=== PATIENT | male | born 2005 | race African-American/Black ===

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

== ENCOUNTER 2024-05-20 17:55 | Emergency (ER) | payer SELFPAY ==
--- OUTSIDE RECORDS SUMMARY | 2024-05-20 17:59 | XMS REPORT | Continuity of Care Document ---
Author Name Unknown Address [address] [facility] [address] [place] [address] [facility] Address [address] [facility] [address] [place] [address] Care Team Providers Care Property Adjuster Name Role Phone HERB QUINONEZ Primary Care Physician UnavailJESSICA Juárez Attending Clinician UnavailBk Martinez MD Attending Clinician [phone] BK ALEXANDRA Attending Clinician Unavailable Doctor Unassigned, Barney Attending Clinician U navailable Bina Rascon LMSW Attending Clinician [phone] Cirilo Horn MD Attending Clinician [phone] Tara Winchester MD Attending Clinician [phone] Tara Winchester MD Admitting Clinician [phone] Payers Payer Name Policy Type Policy Number Effective Date Expirati on Date Source Problems Condition Name Condition Details Condition Category Status Onset Date Resolution Date Last Treatment Date Treating Clinician Comments Source Clonidine overdose, intentiona l self-harm, initial encounter Clonidine overdose, intentiona l self-harm, initial encounter Disease Active 9-16 00:00: 00 General acute hospital Allergies, Adverse Reactions, Alerts Allergy Name Allergy Type Status Severity Reaction(s) Onset Date Inactive Date Treating Clinician Comments Source NO KNOWN ALLERGIE S Drug Class Active General acute hospital Social History Social Habit Start Date Stop Date Quantity Comments Source Exposure to SARS-CoV-2 (event) Not sure [facility] Sex Assigned At 2005 00:00:00 2005 00:00:00 [facility] Smoking Status Start Date Stop Date Source Unknown if ever smoked [facility] Medications Ordered Medication Name Filled Medication Name Start Date Stop Date Current Medication? Ordering Clinician Indication Dosage Frequency Signature (SIG) Comments Components Source escitalopra m oxalate (LEXAPRO) 5 mg tablet 11-15 01:15: 00 Yes 5mg Take 5 mg by mouth daily. General acute hospital escitalopra m oxalate (LEXAPRO) tablet 5 mg 11-14 19:00: 00 Yes 5mg 5 mg, Oral, DAILY, First dose (after last modificati on) on Tue11/15/19 at 1400, Until Discontinu ed, Routine General acute hospital D5W 0.9% NaCl (NS) 1 L + KCL 20 mEq 11-14 16:00: 00 11-14 19:35 :55 No IV Infusion, at 5 mL/hr, CONTINUOUS , Starting Tue11/15/19 at 1100, Until Tue11/15/19 at 1435, Routine General acute hospital D5W 0.9% NaCl (NS) 1 L + KCL 20 mEq 11-13 22:00: 00 11-14 15:51 :04 No IV Infusion, at 113 mL/hr, CONTINUOUS , Starting Tue11/14/19 at 1700, Until Tue11/15/19 at 1051, Routine General acute hospital lidocaine 4% (L-M-X 4) 4 % cream 11-13 21:48: 35 Yes Topical, PRN - SEE INSTRUCTIO NS, Starting Tue11/14/19 at 1648, Until Discontinu ed, Routine, For use with IV insertion and blood draw procedures . General acute hospital NaCl 0.9% (NS) bolus infusion 500 mL 11-13 18:15: 00 11-13 19:00 :00 No 500mL at 999 mL/hr, 500 mL, IV Infusion, ONCE, 1 dose, Tue11/14/19 at 1315, GERONIMO General acute hospital atropine injection 0.5 mg 11-13 18:00: 00 11-13 16:58 :00 No .5mg 0.5 mg, IV Push, ONCE, 1 dose, Tue11/14/19 at 1300, STAT General acute hospital Vital Signs Vital Name Observation Time Observation Value Comments S ource Systolic blood pressure 2020-08-23 13:46:00 142 mm[Hg] [facility] Diastolic blood pressure 2020-08-23 13:46:00 86 mm[Hg] [facility] Heart rate 2020-08-23 13:46:00 68 /min [facility] Respiratory rate 2020-08-23 13:46:00 18 /min [facility] Oxygen saturation in Arterial blood by Pulse oximetry 2020-08-23 13:46:00 98 /min [facility] Body temperature 2020-08-23 04:56:00 36.67 Franchesca [facility] Body height 2020-08-23 04:56:00 167.6 cm [facility] Body weight 2020-08-23 04:56:00 72.576 kg [facility] BMI 2020-08-23 04:56:00 25.82 kg/m2 [facility] Systolic blood pressure 2019-11-15 21:51:00 126 mm[Hg] [facility] Diastolic blood pressure 2019-11-15 21:51:00 64 mm[Hg] [facility] Heart rate 2019-11-15 21:51:00 77 /min [facility] Body temperature 2019-11-15 21:51:00 37.17 Franchesca [facility] Respiratory rate 2019-11-15 21:51:00 20 /min [facility] Oxygen saturation in Arterial blood by Pulse oximetry 2019-11-15 21:51:00 100 /min [facility] Body weight 2019-11-14 15:27:00 72.576 kg [facility] Procedures Procedure Date / Time Performed Performing Clinician Source URINE DRUG (IMMUNOASSAY) - COMPREHENSIVE DRUG SCREEN 2020-08-23 06:01:00 Bk Alexandra [facility] URINALYSIS 2020-08-23 06:01:00 Bk Alexandra [facility] COMP. METABOLIC PANEL (17133) 2020-08-23 05:57:00 Bk Alexandra [facility] SALICYLATE 2020-08-23 05:57:00 Bk Alexandra [facility] ETHANOL 2020-08-23 05:57:00 [facility]FF 2020-08-23 05:57:00 Bk Alexandra [facility] COVID-19 (MOLECULAR TESTING NUCLEIC ACID AMPLIFICATION) 2020-08-23 05:47:00 Bk Alexandra [facility] COVID-19 (ID NOW RAPID TESTING) 2020-08-23 05:47:00 Bk Alexandra [facility] NOTICE OF PRIVACY PRACTICES 2020-08-23 04:53:49 Doctor Unassigned, Barney [facility] CONSENT/REFUSAL FOR DIAGNOSIS AND TREATMENT 2020-08-23 04:49:42 Doctor Unassigned, Barney [facility] COVID-19 (PCR MOLECULAR TESTING) 2019-11-14 21:59:00 Mahogany Hartmann [facility] COVID-19 (ID NOW RAPID TESTING) 2019-11-14 17:33:00 Cirilo Horn [facility] EKG-12 LEAD 2019-11-14 17:28:57 Cirilo Horn [facility] HEPATIC FUNCTION PANEL (35461) (ALB,T.PRO,BILI T,BU/BC,ALT,AST,ALK PHOS) 2019-11-14 16:12:00 Cirilo Horn [facility] BASIC METABOLIC PANEL (NA, K, CL, CO2, GLUCOSE, BUN, CREATININE, CA) 2019-11-14 16:12:00 Cirilo Horn [facility] SALICYLATE 2019-11-14 16:12:00 Cirilo Horn [facility] ETHANOL 2019-11-14 16:12:00 Cirilo Horn [facility] CBC WITH DIFF 2019-11-14 16:12:00 Cirilo Horn [facility] ADC / LCC - DRUG SCREEN TRIAGE 2019-11-14 16:12:00 Cirilo Horn [facility] EKG-12 LEAD 2019-11-14 15:27:30 Cirilo Horn [facility] CRITICAL CARE 2019-11-14 15:20:00 Cirilo Horn [facility] CONSENT/REFUSAL FOR DIAGNOSIS AND TREATMENT 2019-11-14 15:19:57 Doctor Unassigned, Barney [facility] NOTICE OF PRIVACY PRACTICES 2019-11-14 15:19:40 Doctor Unassigned, Barney [facility] Encounters Start Date/Time End Date/Time Encounter Type Admission Type Attending [facility] Facility Care Department Encounter ID Source 2023-11-18 22:36:00 2023-11-19 17:52:00 Emergency E JESSICA [facility]OMAS [facility] [id number] [facility] 2020-08-23 00:01:00 2020-08-23 09:43:00 Emergency Bk Alexandra [facility] [id number] General acute hospital 2020-08-23 00:01:00 2020-08-23 09:43:00 Emergency X BK ALEXANDRA [facility] ERT [id number] General acute hospital 2020-08-22 00:00:00 2020-08-22 00:00:00 Orders Only Doctor Unassigned, Barney [facility] 1..840.114 [id number] [id number] [id number] General acute hospital 2019-11-16 00:00:00 2019-11-16 00:00:00 Telephone [facility] [id number] General acute hospital 2019-11-16 00:00:00 2019-11-16 00:00:00 Telephone [facility] [id number] General acute hospital 2019-11-14 10:23:00 2019-11-15 20:14:00 Hospital Encounter Cirilo Horn J Chad [facility] [id number] [id number] [id number] General acute hospital 2019-11-14 10:23:00 2019-11-14 10:23:00 Emergency X [facility] ERT [id number] General acute hospital Results Test Description Test Time Test Comments Results Result Co mments Source [facility] 07:18:18* Test Item Value Reference Range Interpretation Comme nts ALCOHOL (test code = 6776709632) <10 mg/dL SARTHAK (test code = SARTHAK) <10 [id number] Toxic>100 Depression of BI TECHNICAL LEAD>400 Fatalities Reported [facility]20[facility] 07:18:12* Test Item Value Reference Range Interpretation Comme nts SALICYLATE (test code = 8758753054) <10 mg/L SARTHAK (test code = SARTHAK) Therapeutic Range: ? Analgesic and Antipyretic Use ? 20-100 mg/L ? ? Anti-Inflammatory Use ? 100-250 mg/L Toxic Range: ? Greater than 300 mg/L [facility]HEN2021-06-26 07:18:02* Test Item Value Reference Range Interpretation Comme nts ACETAMINOP (test code = 1468773720) <10.0 10.0-30.0 L SARTHAK (test code = SARTHAK) Toxic: Greater iris n 200 ug/mL @ 4 hour post ingestion or greater than 50 ug/mL @ 12 hour post ingestion Lab Interpretation (test code = 89841-3) Abnormal [facility] Met[facility] [id number] 07:17:17* Test Item Value Reference Range Interpretation Comme nts NA (test code = 5007910127) 139 mmol/L 135-145 K (test code = 4248966190) 3.9 mmol/L 3.5-5.0 CL (test code = 0347262458) 103 mmol/L 98-108 CO2 TOTAL (test code = 0065528226) 27 mmol/L 23-31 AGAP (test code = 3196626212) 2-16 BUN (test code = 4295711592) 13 mg/dL 7-23 GLUCOSE (test code = 2604343456) 84 mg/dL 70-110 CREATININE (test code = 0831274898) 0.84 mg/dL 0.60-1.25 TOTAL BILI (test code = 1996232175) 0.5 mg/dL 0.1-1.1 CALCIUM (test code = 6007824708) 9.7 mg/dL 8.6-10.6 T PROTEIN (test code = 0453585329) 7.3 g/dL 6.3-8.2 ALBUMIN (test code = 9939473517) 4.4 g/dL 3.5-5.0 ALK PHOS (test code = 5766581414) 118 U/L 60-420 ALTv (test code = 1742-6) 11 U/L 5-50 AST(SGOT) (test code = 2528516766) 22 U/L 13-40 SARTHAK (test code = [...] imaging tests). Lab Interpretation (test code = 03040-9) Normal [facility] (ID NOW RAPID TESTING)2020-08-23 06:42:12* Test Item Value Reference Range Interpretation Comme [facility] SARS-CoV-2 Rapid ID NOW (test code = 75376-0) Not Detected Not Detected SARTHAK (test code = SARTHAK) ID NOW COVID-19 As say is an isothermal nucleic acid amplification test intended for the qualitative detection of nucleic acid from SARS-CoV-2 viral RNA in nasopharyngeal (COMMUNICATIONS TOWER TECHNICIAN) specimens. It is used under Emergency Use [...] clinically indicated. Lab Interpretation (test code = 78375-6) Normal [facility] (IMMUNOASSAY) - COMPREHENSIVE DRUG [id number] 06:29:27* Test Item Value Reference Range Interpretation Comme nts AMPHET (test code = 6447776398) Negative Negative DELLA U (test code = 7285415531) Negative Negative BENZO U (test code = 7163031739) Negative Negative Cocaine Metabolite (test code = 9089054833) Negative Negative METHADONE (test code = 3255712506) Negative Negative OPIATES (test code = 7695302953) Negative Negative PCP (test code = 4677599686) Negative Negative THC (test code = 2038593100) Negative Negative SARTHAK (test code = SARTHAK) [...] legal testing). Lab Interpretation (test code = 27395-8) Normal [facility] HospitalUrinalysis2021-06-26 06:24:14* Test Item Value Reference Range Interpretation Comme nts APPEARANCE (test code = 1632091338) Hazy Clear A COLOR (test code = 7565408336) Yellow Yellow PH (test code = 6174703575) 4.8-8.0 SP GRAVITY (test code = 0688191494) 1.003-1.030 H GLU U QUAL (test code = 4771371516) Normal Normal BLOOD (test code = 6919298309) Negative Negative KETONES (test code = 2210303459) 5 mg/dL Negative A PROTEIN (test code = 2887-8) 30 mg/dL Negative A UROBILIN (test code = 2938926345) 2.0 mg/dL Normal A BILIRUBIN (test code = 8448985232) Negative Negative NITRITE (test code = 0203807913) Negative Negative LEUK PRAVEEN (test code = 3843744249) Negative Negative RBC/HPF (test code = 3045041633) See_Comment [Automated MailPix[employer] ge] The system which generated this result transmitted reference range: 0 - 3 HPF. The reference range was not used to interpret this result as normal/abnormal. WBC/HPF (test code = 2037403589) See_Comment [Automated messa ge] The system which generated this result transmitted reference range: 0 - 5 HPF. The reference range was not used to interpret this result as normal/abnormal. BACTERIA (test code = 9325968836) Few Negative A MUCOUS (test code = 5348273568) Marked Negative LPF A SQ EPITH (test code = 2913205775) <1 HPF HYAL CAST (test code = 2027442701) See_Comment [Automated messa ge] The system which generated this result transmitted reference range: <=2 LPF. The reference range was not used to interpret this result as normal/abnormal. Lab Interpretation (test code = 06684-5) Abnormal [facility] with Fsfjxgtxbdct6511-96-10 06:09:07* Test Item Value Reference Range Interpretation [...] 32.1 g/dL 32.0-36.0 RDW-SD (test code = 00737-6) 44.4 fL 38.5-49.0 RDW-CV (test code = 788-0) 13.6 % 11.5-14.0 PLT (test code = 777-3) See_Comment [Automated messa ge] The system which generated this result transmitted reference range: 133 - 320 10*3/?L. The reference range was not used to interpret this result as normal/abnormal. MPV (test code = 29168-7) 10.5 fL 9.3-12.9 NRBC/100 WBC (test code = 8076625028) See_Comment [Automated me ssage] The system which generated this result transmitted reference range: 0.0 - 10.0 /100 WBCs. The reference range was not used to interpret this result as normal/abnormal. NRBC x10^3 (test code = 1046966353) <0.01 See_Comment [Automated messa ge] The system which generated this result transmitted reference range: 10*3/?L. The reference range was not used to interpret this result as normal/abnormal. GRAN MAT (NEUT) % (test code = 770-8) 59.8 % IMM GRAN % (test code = 4119576219) 0.30 % LYMPH % (test code = 736-9) 30.5 % MONO % (test code = 5905-5) 7.0 % EOS % (test code = 713-8) 2.1 % BASO % (test code = 706-2) 0.3 % GRAN MAT x10^3(ANC) (test code = 0366053782) 5.93 10*3/uL 1.50-10.30 IMM GRAN x10^3 (test code = 9055518111) 0.03 10*3/uL 0.00-0.06 LYMPH x10^3 (test code = 731-0) 3.02 10*3/uL 0.70-7.40 MONO x10^3 (test code = 742-7) 0.69 10*3/uL 0.00-0.50 H EOS x10^3 (test code = 711-2) 0.21 10*3/uL 0.00-0.40 BASO x10^3 (test code = 704-7) 0.03 10*3/uL 0.00-0.10 Lab Interpretation (test code = 85126-0) Abnormal [facility]COR[facility] COVID-19 [id number] 03:43:00* Test Item Value Reference Range Interpretation Comme nts SARS-CoV-2 PCR (test code = 71258-3) Not Detected Not Detected SARTHAK (test code = SARTHAK) Hologic Aptima SARS-CoV-2 Assay is a nucleic acid amplification test intended for the qualitative detection of RNA from SARS-CoV-2 from nasopharyngeal (COMMUNICATIONS TOWER TECHNICIAN) specimens. ?It is used under Emergency Use [...] clinically indicated. Lab Interpretation (test code = 82502-2) Normal [facility] (ID NOW RAPID TESTING)2019-11-14 18:30:00* Test Item Value Reference Range Interpretation Comme nts SARS-CoV-2 Rapid ID NOW (test code = 34309-1) Not Detected Not Detected SARTHAK (test code = SARTHAK) ID NOW COVID-19 As say is an isothermal nucleic acid amplification test intended for the qualitative detection of nucleic acid from SARS-CoV-2 viral RNA in nasopharyngeal (COMMUNICATIONS TOWER TECHNICIAN) specimens. It is used under Emergency Use [...] clinically indicated. Lab Interpretation (test code = 26640-0) Normal [facility] HospitalAcetaminophen2020-09-16 17:31:00* Test Item Value Reference Range Interpretation Comme nts ACETAMINOP (test code = 7804068786) <10.0 10-30 L SARTHAK (test code = SARTHAK) Toxic: Greater iris n 200 ug/mL @ 4 hour post ingestion or greater than 50 ug/mL @ 12 hour post ingestion Lab Interpretation (test code = 09293-3) Abnormal [facility] HospitalSalicylate2020-09-16 17:31:00* Test Item Value Reference Range Interpretation Comme nts SALICYLATE (test code = 8778972493) <10 mg/L SARTHAK (test code = SARTHAK) Therapeutic Range: ? Analgesic and Antipyretic Use ? 20-100 mg/L ? ? Anti-Inflammatory Use ? 100-250 mg/L Toxic Range: ? Greater than 300 mg/L [facility] - DRUG SCREEN [id number] 17:13:00* Test Item Value Reference Range Interpretation Comme nts BENZO U (test code = 6500926778) Negative Negative DELLA U (test code = 6745566317) Negative Negative AMPHET (test code = 2182501993) Negative Negative THC (test code = 8698514599) Negative Negative METHADONE (test code = 6629080099) Negative Negative Meth U (test code = 0670685585) Negative Negative OPIATES (test code = 0698450990) Negative Negative Cocaine Metabolite (test code = 3902951471) Negative Negative PROPOXY (test code = 3694083322) Negative Negative Tric U (test code = 3008848181) Negative Negative PCP (test code = 8778831503) Negative Negative OXYCOD (test code = 0948126087) Negative Negative SARTHAK (test code = SARTHAK) [...] legal testing). Lab Interpretation (test code = 99438-5) Normal [facility] HospitalEthanol (ETOH) [id number] 16:57:00* Test Item Value Reference Range Interpretation Comme nts ALCOHOL (test code = 5003083694) <10 mg/dL SARTHAK (test code = SARTHAK) <10 Olkgpoll14-549 Toxic>100 Depression of BI TECHNICAL LEAD>400 Fatalities Reported [facility] HospitalBasi Metabolic Panel (NA, K, CL, CO2, Glucose, BUN, Creatinine, CA)2019-11-14 16:51:00* Test Item Value Reference Range Interpretation Comme nts NA (test code = 7047138673) 137 mmol/L 135-145 K (test code = 3945276378) 4.3 mmol/L 3.5-5 CL (test code = 9035837250) 100 mmol/L 98-108 CO2 TOTAL (test code = 3600985624) 26 mmol/L 23-31 AGAP (test code = 1140258726) 2-16 BUN (test code = 8297497257) 11 mg/dL 7-23 GLUCOSE (test code = 8065757083) 92 mg/dL 70-110 CREATININE (test code = 9312736009) 0.71 mg/dL 0.6-1.25 CALCIUM (test code = 9435532946) 9.8 mg/dL 8.6-10.6 SARTHAK (test code = [...] imaging tests). Lab Interpretation (test code = 81031-7) Normal [facility] HospitalHepatic Function Panel (ALB, T.PRO, BILI T, BU/BC, ALT, AST, ALK PHOS)2019-11-14 16:51:00* Test Item Value Reference Range Interpretation Comme nts TOTAL BILI (test code = 7661484710) 0.4 mg/dL 0.1-1.1 BILI UNCON (test code = 4489980992) 0.6 mg/dL 0.1-1.1 BILI CONJ (test code = 7635291509) 0.0 mg/dL 0-0.3 T PROTEIN (test code = 2555797147) 7.7 g/dL 6.3-8.2 ALBUMIN (test code = 1875903021) 4.3 g/dL 3.5-5 ALK PHOS (test code = 0732769657) 143 U/L 60-420 ALTv (test code = 1742-6) 16 U/L 5-50 AST(SGOT) (test code = 2135255534) 34 U/L 13-40 Lab Interpretation (test cod e = 85798-7) Normal [facility] HospitalCBC with Igesdehenkdc0734-40-33 16:27:00* Test Item Value Reference Range Interpretation Comme nts WBC (test code = 6690-2) See_Comment [Automated [employer] Accumulate] The system which generated this result transmitted reference range: 4.50 - 13.50 10*3/?L. The reference range was not used to interpret this result as normal/abnormal. RBC (test code = 789-8) See_Comment [Automated [employer] Accumulate] The system which generated this result transmitted [...] g/dL 32-36 L RDW-SD (test code = 74027-1) 43.7 fL 38.5-49 RDW-CV (test code = 788-0) 13.2 % 11.5-14 PLT (test code = 777-3) See_Comment [Automated messa ge] The system which generated this result transmitted reference range: 133 - 320 10*3/?L. The reference range was not used to interpret this result as normal/abnormal. MPV (test code = 64854-9) 11.0 fL 9.3-12.9 NRBC/100 WBC (test code = 7414130852) See_Comment [Automated Momail ssage] The system which generated this result transmitted reference range: 0.0 - 10.0 /100 WBCs. The reference range was not used to interpret this result as normal/abnormal. NRBC x10^3 (test code = 2424485747) <0.01 See_Comment [Automated messa ge] The system which generated this result transmitted reference range: 10*3/?L. The reference range was not used to interpret this result as normal/abnormal. GRAN MAT (NEUT) % (test code = 770-8) 65.0 % IMM GRAN % (test code = 2752413870) 0.40 % LYMPH % (test code = 736-9) 25.0 % MONO % (test code = 5905-5) 8.2 % EOS % (test code = 713-8) 1.1 % BASO % (test code = 706-2) 0.3 % GRAN MAT x10^3(ANC) (test code = 8820721656) 5.89 10*3/uL 1.5-10.3 IMM GRAN x10^3 (test code = 4325075245) 0.04 10*3/uL 0-0.06 LYMPH x10^3 (test code = 731-0) 2.27 10*3/uL 0.7-7.4 MONO x10^3 (test code = 742-7) 0.74 10*3/uL 0-0.5 H EOS x10^3 (test code = 711-2) 0.10 10*3/uL 0-0.4 BASO x10^3 (test code = 704-7) 0.03 10*3/uL 0-0.1 Lab Interpretation (test code = 96568-0) Abnormal [facility] HospitalCritical [id number] 15:20:00Cirilo Horn MD ? ? 11/14/2019 ?1:02 [...] studies, pulse oximetry and re-evaluation of [facility]Un[facility]"
[2024-05-20] MEDS ORDERED: TETRACAINE HCL 0.5% 4ML OPTH ONE (18:02)
[2024-05-20] MEDS ORDERED: FLUORESCEIN SODIUM 1 MG/WRAP ONE (18:02)
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
[2024-05-20 19:16] VITALS: O2SAT 100
[2024-05-20 19:18] VITALS: BP 156/91; TEMP 98.4
== END 2024-05-20 19:11 | disposition home or self-care (01) ==
LOC: ER 17:55
DX: H10.32 Unspecified acute conjunctivitis, left eye (principal)
CPT/HCPCS: 99284

== ENCOUNTER 2024-12-19 16:46 | Emergency (ER) | payer SELFPAY ==
[2024-12-19] MEDS ORDERED: NA CHLORIDE 0.9% 1,000 ML ONE (17:40)
[2024-12-19 17:50] LABS: Sqamous Epithelial <5 /HPF (None Seen); Urine Crystals Unidentified Few /HPF (None Seen); Urine Culture Reflex Order REFLEXED; Urine Microscopic Reflex YN ORDER UMIC; Urine WBC Clump Few /HPF (None Seen); Urine Yeast (Budding) Few /HPF (None Seen)
[2024-12-19 17:54] LABS: Absolute Lymphocytes (CBC) 2.7 K/uL (0.7-4.9); Hematocrit 43.7 % (39.6-49.0); Hemoglobin 14.4 g/dL (13.6-17.9); MCH 29.4 pg (27.0-35.0); MCHC 33.0 g/dL (32.0-36.0); MCV 89.2 fL (80-100); MPV 8.3 fL (7.6-11.3); Nucleated RBC Absolute Count 0.0 (0-0); Nucleated Red Blood Cells % 0.0 % (0-0); RBC Red Blood Cell Count 4.90 M/uL (4.33-5.43); White Blood Count 11.30 thou/uL (4.3-10.9)
[2024-12-19] MEDS ORDERED: NA CHLORIDE 0.9% 100 ML ONE (18:16)
[2024-12-19] MEDS ORDERED: CEFTRIAXONE 1000 MG/VIAL ONE (18:16)
[2024-12-19 18:27] LABS: ALT/SGPT 998.0 U/L (16-61); AST/SGOT 411.0 U/L (15-37); Albumin 3.3 g/dL (3.4-5.0); Albumin/Globulin Ratio 1.0 (1.1-1.8); Alkaline Phosphatase 137.0 U/L (45-117); Anion Gap 6.3 mEq/L (5.0-15.0); BUN Blood Urea Nitrogen 6.0 mg/dL (7-18); Globulin 3.4 g/dL (2.3-3.5); Glucose Level 90.0 mg/dL (74-106); Lipase 49.0 U/L (13-75); Potassium 3.3 mEq/L (3.5-5.1)
[2024-12-19] MEDS ORDERED: KETOROLAC 30 MG/ML INJ ONE (18:43)
--- NOTE | 2024-12-19 19:16 | RAD REPORT ---
EXAMINATION: CT ABDOMEN AND PELVIS WITH CONTRAST CLINICAL INDICATION: Abd pain;Hematuria TECHNIQUE: CT abdomen and pelvis was performed, after the administration of IV contrast, as per [facility] protocol. Axial, sagittal and coronal reconstructions were obtained. One or more of the following dose reduction techniques were used: Automated exposure control, adjustment of the mA and k V according to patient size, and iterative reconstruction. Unless otherwise specified, incidental findings do not require dedicated imaging follow-up. COMPARISON: No prior exam. FINDINGS: LOWER CHEST: The visualized lung bases are clear. LIVER: Normal in size and contour. No focal lesion. Grossly unremarkable gallbladder. SPLEEN: Normal size. No focal lesion. PANCREAS: No mass, ductal dilation, or eddie-pancreatic fluid. ADRENALS: Normal; no mass. KIDNEYS: Normal size and contour. No hydronephrosis. GASTROINTESTINAL TRACT: No evidence of free air, significant intra-abdominal free fluid, bowel obstru ction or abscess. Prominent stool is seen throughout the colon. APPENDIX: Normal appendix. LYMPH NODES: No lymphadenopathy. MUSCULOSKELETAL: No acute or suspicious osseous abnormality. ADDITIONAL FINDINGS: There is significant thickening and mucosal enhancement of the urinary bladder. IMPRESSION: Significant thickening and mucosal enhancement of the urinary bladder suggestive of cystitis. Correla tion with urinalysis is advised. Moderate stool is retained throughout the colon.
--- NOTE | 2024-12-19 19:24 | EDPHYS ---
Physician Documentation [facility] Name: Anthony Lam Age: 19 yrs Sex: Male : 2005 Arrival Date: 12/19/2024 Time: 16:46 Bed 9 Private MD: Jaime Ramos HPI: 12/19 18:44 This 19 yrs old Black Male presents to ER via Ambulatory with complaints of Abdominal sb4 Pain. 18:44 Patient reports suprapubic abdominal pain that began today. Additionally, he reports sb4 difficulty urinating, pain with urination, and blood in his urine. Feels like he cannot fully empty his bladder. Denies any fever or chills. Denies any nausea, vomiting, diarrhea. Denies any flank pain. Historical: - Allergies: 17:23 No Known Allergies; bp - PMHx: 17:23 ADD/ADHD; bp - PSHx: 17:23 None; bp - Immunization history:: Adult Immunizations up to date. - Infectious Disease History:: Denies. - Social history:: Smoking status: Patient reports the use of cigarette tobacco products, smokes one-half pack cigarettes per day, Reported history of juuling and/or vaping. ROS: 18:44 Constitutional: Negative for fever, chills, and weight loss, sb4 18:44 Abdomen/GI: Positive for abdominal pain, 18:44 : Positive for urinary symptoms, burning with urination, difficulty urinating, Negative for foul smelling urine, penile discharge, penile pain, testicular pain 18:44 All other systems are negative, Exam: 18:44 Constitutional: This is a well developed, well nourished patient who is awake, alert, sb4 and in no acute distress. Head/Face: Normocephalic, atraumatic. Eyes: Extra-ocular motions intact. Periorbital areas with no swelling, redness, or edema. ENT: Mucous membranes moist. Respiratory: No increased work of breathing, no retractions or nasal flaring. Abdomen/GI: Soft, non-tender, no distension. Back: No spinal tenderness. No costovertebral tenderness. Full range of motion. Skin: Warm, dry with normal turgor. Normal color with no rashes, no lesions, and no evidence of cellulitis. Vital Signs: 17:23 BP 130 / 87; Pulse 83; Resp 17; Temp 97.5; Pulse Ox 99% ; Pain 10/10; bp 17:40 BP 128 / 78; Pulse 84; Resp 18; Pulse Ox 99% ; rg5 18:25 BP 126 / 79; Pulse 76; Resp 17; Pulse Ox 99% ; rg5 18:55 BP 133 / 90; Pulse 71; Resp 18; Pulse Ox 100% ; rg5 17:23 Pain Scale: Adult bp MDM: 17:19 Medical Screening Exam initiated sb4 18:45 Differential diagnosis: non-specific abd pain, Pyelonephritis, Ureterolithiasis, sb4 urinary tract infection. 19:23 Data reviewed: vital signs, nurses notes, lab test result(s), radiologic studies, and sb4 as a result, I will discharge patient. Counseling: I had a detailed discussion with the patient and/or guardian regarding the historical points, exam findings, and any diagnostic results supporting the discharge/admit diagnosis, lab results, radiology results, the need for outpatient follow up, for definitive care, to return to the emergency department if symptoms worsen or persist or if there are any questions or concerns that arise at home. ED course: Discussed elevated liver enzymes with patient. He denies any alcohol abuse or new medications. He is not having any upper abdominal pain, nausea, or vomiting. T. bili is within normal limits. Advised to follow-up with PCP in about a month to have his labs rechecked and will provide a copy of all results with patient. 12/19 17:32 Order name: CBC with Diff; Complete Time: 17:59 sb4 12/19 17:32 Order name: CMP; Complete Time: 18:30 sb4 12/19 17:32 Order name: Lipase; Complete Time: 18:30 sb4 12/19 17:32 Order name: UA Rfx Woo Cult if indicated; Complete Time: 17:59 sb4 12/19 17:55 Order name: Urine Culture EDMS 12/19 18:00 Order name: GC (Arya/Chl) Probe CX/URE (Do not order if pt is under 13, order Culture sb4 instead) 12/19 17:32 Order name: CT Abd/Pelvis - IV Contrast Only; Complete Time: 19:18 sb4 12/19 17:32 Order name: IV Saline Lock; Complete Time: 17:48 sb4 12/19 17:32 Order name: Labs collected and sent; Complete Time: 17:48 sb4 Administered Medications: 17:48 Drug: NS 0.9% IV 1000 ml IV at 1 bolus Per protocol; to be given as a bolus over 60 rg5 minutes Route: IV; Rate: 1 bolus; Site: right forearm; 18:40 Follow up: IV Status: Completed infusion; IV Intake: 1000ml rg5 18:24 Drug: Rocephin IV 1 grams IV at calculated rate once; Given slow IV push per pharmacy rg5 instructions Route: IV; Rate: calculated rate; Site: right forearm; 19:25 Follow up: IV Status: Completed infusion; IV Intake: 50ml rg5 18:53 Drug: Ketorolac IVP 15 mg IVP once Route: IVP; Site: right forearm; rg5 19:42 Follow up: Response: No adverse reaction rg5 Disposition Summary: 12/19/24 19:24 Discharge Ordered Notes: Location: Home sb4 Problem: new sb4 Symptoms: have improved sb4 Condition: Stable sb4 Diagnosis - Acute cystitis with hematuria sb4 Followup: sb4 - With: Emergency Department - When: As needed - Reason: Fever > 102 F, Worsening of condition Discharge Instructions: - Discharge Summary Sheet sb4 - Urinary Tract Infection, Adult sb4 Forms: - Antibiotic Education sb4 - Patient Portal Instructions sb4 - Leadership Thank You Letter sb4 Prescriptions: - Cipro 500 mg Oral Tablet - take 1 tablet ORAL route every 12 hours for 7 days; 14 tablet; Refills: 0, sb4 Product Selection Permitted Signatures: Dispatcher [employer] EDMS Sharan Coleman, RN RN Marely Pettit PA-C PACastilloC sb4 Fabricio Blue RN RN rg5 Corrections: (The following items were deleted from the chart) 17:32 17:32 CBC+H.LAB.BRZ ordered. EDMS EDMS 17:32 17:32 COMPREHENSIVE METABOLIC PANEL+C.LAB.BRZ ordered. EDMS EDMS 17:32 17:32 LIPASE+C.LAB.BRZ ordered. EDMS EDMS 17:32 17:32 UA Rfx Woo Cult if indicated+U.LAB.BRZ ordered. EDMS EDMS 18:00 18:00 GC (Arya/Chl) Probe CX/URE+R.LAB.BRZ (Do not order if pt is under 13, order EDMS Culture instead) ordered. EDMS
--- NOTE | 2024-12-19 19:24 | ER ---
Nurse's Notes [facility] Name: Anthony Lam Age: 19 yrs Sex: Male : 2005 Arrival Date: 12/19/2024 Time: 16:46 Bed 9 Private MD: Diagnosis: Acute cystitis with hematuria Presentation: 12/19 17:23 Chief complaint: Patient states: Abdominal pain for 2 days. No fever or N/V/D. bp Coronavirus screen: Client denies travel out of the [place] in the last 14 days. At this time, the client does not indicate any symptoms associated with coronavirus-19. Ebola Screen: Patient denies travel to an Ebola-affected area in the 21 days before illness onset. Initial Sepsis Screen: Does the patient meet any 2 criteria? No. Patient's initial sepsis screen is negative. Does the patient have a suspected source of infection? No. Patient's initial sepsis screen is negative. Risk Assessment: Do you want to hurt yourself or someone else? Patient reports no desire to harm self or others. Onset of symptoms was December 18, 2024. 17:23 Method Of Arrival: Ambulatory bp 17:23 Acuity: KAREN 3 bp Triage Assessment: 17:23 General: Appears in no apparent distress. Behavior is calm, cooperative, appropriate ll1 for age. Pain: Complains of pain in abdomen Pain currently is 10 out of 10 on a pain scale. Quality of pain is described as aching, crampy. GI: Reports lower abdominal pain, upper abdominal pain. Historical: - Allergies: 17:23 No Known Allergies; bp - PMHx: 17:23 ADD/ADHD; bp - PSHx: 17:23 None; bp - Immunization history:: Adult Immunizations up to date. - Infectious Disease History:: Denies. - Social history:: Smoking status: Patient reports the use of cigarette tobacco products, smokes one-half pack cigarettes per day, Reported history of juuling and/or vaping. Screenin:40 [facility] ED Fall Risk Assessment (Adult) History of falling in the last 3 months, rg5 including since admission No falls in past 3 months (0 pts) Confusion or Disorientation No (0 pts) Intoxicated or Sedated No (0 pts) Impaired Gait No (0 pts) Mobility Assist Device Used No (0 pt) Altered Elimination No (0 pt) Score/Fall Risk Level 0 - 2 = Low Risk Oriented to surroundings, Maintained a safe environment. Abuse screen: Denies threats or abuse. Nutritional screening: No deficits noted. Tuberculosis screening: No symptoms or risk factors identified. Assessment: 17:38 Reassessment: No changes from previously documented assessment. Patient and/or family ll1 updated on plan of care and expected duration. Pain level reassessed. 18:26 Reassessment: No changes from previously documented assessment. Patient and/or family rg5 updated on plan of care and expected duration. Pain level reassessed. Patient is alert, oriented x 3, equal unlabored respirations, skin warm/dry/pink. General: Appears in no apparent distress. Vital Signs: 17:23 BP 130 / 87; Pulse 83; Resp 17; Temp 97.5; Pulse Ox 99% ; Pain 10/10; bp 17:40 BP 128 / 78; Pulse 84; Resp 18; Pulse Ox 99% ; rg5 18:25 BP 126 / 79; Pulse 76; Resp 17; Pulse Ox 99% ; rg5 18:55 BP 133 / 90; Pulse 71; Resp 18; Pulse Ox 100% ; rg5 17:23 Pain Scale: Adult bp ED Course: 17:15 Patient arrived in ED. cj3 17:17 Marely Magana PA-C is PHCP. sb4 17:17 Jaime Tavares MD is Attending Physician. sb4 17:23 Arm band placed on. bp 17:24 Triage completed. bp 17:33 Fabricio Blue, PAULA is Primary Nurse. rg5 17:38 Patient placed in an exam room, on a stretcher. ll1 17:38 Patient has correct armband on for positive identification. Provided Education on: ER ll1 procedures and process. 17:38 UA Rfx Woo Cult if indicated Sent. ll1 17:40 No provider procedures requiring assistance completed. Inserted saline lock: 20 gauge rg5 in right forearm, using aseptic technique. Blood collected. Flushed with 10 mL NS. Patient maintains SpO2 saturation greater than 95% on room air. 19:07 CT Abd/Pelvis - IV Contrast Only In Process Unspecified. EDMS 19:49 IV discontinued, bleeding controlled, No redness/swelling at site. Pressure dressing rg5 applied. Administered Medications: 17:48 Drug: NS 0.9% IV 1000 ml IV at 1 bolus Per protocol; to be given as a bolus over 60 rg5 minutes Route: IV; Rate: 1 bolus; Site: right forearm; 18:40 Follow up: IV Status: Completed infusion; IV Intake: 1000ml rg5 18:24 Drug: Rocephin IV 1 grams IV at calculated rate once; Given slow IV push per pharmacy rg5 instructions Route: IV; Rate: calculated rate; Site: right forearm; 19:25 Follow up: IV Status: Completed infusion; IV Intake: 50ml rg5 18:53 Drug: Ketorolac IVP 15 mg IVP once Route: IVP; Site: right forearm; rg5 19:42 Follow up: Response: No adverse reaction rg5 Medication: 19:49 VIS not applicable for this client. rg5 Intake: 18:40 IV: 1000ml; Total: 1000ml. rg5 19:25 IV: 50ml; Total: 1050ml. rg5 Outcome: 19:24 Discharge ordered by MD. sb4 19:48 Discharged to home ambulatory, rg5 19:48 Condition: stable 19:48 Discharge instructions given to patient, Instructed on discharge instructions, Demonstrated understanding of instructions, Prescriptions given X 1, 19:49 Patient left the ED. rg5 Addendum: 12/23/2024 07:43 Addendum: Culture Results: Positive urine culture. No further action required. Bacteria s s sensitive to prescribed antibiotic. Signatures: Dispatcher [employer] EDMS Alena Holloway RN RN ss Sharan Coleman RN RN bp Lewis, Lynsay, RN RN ll1 Marely Magana PA-C PAJudson sb4 Fabricio Blue RN RN rg5 Leia Briseno 3
[2024-12-19 22:31] VITALS: O2SAT 100
[2024-12-19 22:35] VITALS: TEMP 98
[2024-12-19 22:38] VITALS: BP 122/78
[2024-12-23 22:06] LABS: C.trachomatis RNA,TMA Not Detected (Not Detected); N.gonorrhoeae RNA,TMA Not Detected (Not Detected)
== END 2024-12-19 19:49 | disposition home or self-care (01) ==
LOC: ER 16:46
DX: N30.01 Acute cystitis with hematuria (principal); R10.9 Unspecified abdominal pain; F17.210 Nicotine dependence, cigarettes, uncomplicated; F90.9 Attention-deficit hyperactivity disorder, unspecified type
CPT/HCPCS: 36415; 74177; 80053; 81001; 83690; 85025; 87077; 87086; 87088; 87186; 87490; 87590; 96361; 96365; 96375; 99284; J0696; J1885; J7030; Q9967